=== PATIENT | female | born 1955 | race Caucasian/White ===

== ENCOUNTER → 2017-03-05 | Outpatient (CLI) | payer OTHER ==
[~2017-03-05] MED LIST: ABILIFY 5 MG TAB5 M1 PO; ALPRAZOLAM 0.50.5 M1 PO; CALCIUM 600 +1 EAC1 PO; CYMBALTA60 MG PO; ESTER C PO; ORPHENADRINE C100 M2 PO; PRAVASTATIN SOD80 MG PO; PRIMROSE OIL PO; SYNTHROID75 MCG PO; TOPAMAX 100 MG100 MG PO; VITAMIN E400 UNIT PO
== END ==
LOC: RAD 13:17
DX: Z12.31 Encounter for screening mammogram for malignant neoplasm of breast (principal)

== ENCOUNTER → 2017-03-12 | Outpatient (CLI) | payer OTHER | LOC: BC 01:35 | DX: N63 Unspecified lump in breast (principal); N60.01 Solitary cyst of right breast ==

== ENCOUNTER → 2018-02-26 | Outpatient (CLI) | payer OTHER | LOC: RAD 00:18 | DX: Z12.31 Encounter for screening mammogram for malignant neoplasm of breast (principal); Z85.3 Personal history of malignant neoplasm of breast ==

== ENCOUNTER → 2019-04-09 | Outpatient (CLI) | payer OTHER | LOC: RAD 01:29 | DX: Z12.31 Encounter for screening mammogram for malignant neoplasm of breast (principal) ==

== ENCOUNTER → 2020-04-22 | Outpatient (CLI) | payer OTHER | LOC: RAD 12:45 | PROVIDERS: ATTEND Family Medicine | DX: Z12.31 Encounter for screening mammogram for malignant neoplasm of breast (principal) ==

== ENCOUNTER → 2021-05-06 | Outpatient (CLI) | payer OTHER | LOC: RAD 14:26 | PROVIDERS: ATTEND Family Medicine | DX: Z12.31 Encounter for screening mammogram for malignant neoplasm of breast (principal); N64.89 Other specified disorders of breast; Z92.3 Personal history of irradiation; Z85.3 Personal history of malignant neoplasm of breast ==

== ENCOUNTER → 2021-05-10 | Outpatient (CLI) | payer OTHER | LOC: ULTRA 13:08 | PROVIDERS: ATTEND Radiology Diagnostic Radiology | DX: N60.01 Solitary cyst of right breast (principal) ==

== ENCOUNTER → 2021-05-19 | Outpatient (CLI) | payer OTHER ==
--- NOTE | 2021-05-23 17:07 | PATH ---
[facility] [address] [address] PATHOLOGY RPT PROCEDURE Name: LUZ CHEN Room #: REG [facility] M..#: [id number] Admission: 05/19/21 Date of : 53 Discharge: Report #: [id number] Path Case #: [id number] [facility] Accession Number: [id number] . 01 Material submitted: . PART A: breast - RIGHT BREAST CENTRAL BIOPSY. Modifiers: right PART B: breast - RIGHT AXILLARY NODE. Modifiers: right . 01 Clinical history: . BX MAMMOTOME/STEREO BX/R AX NODE/R BREAST CALCIFICATION . 02 Diagnosis: A. Breast, right breast central, stereotactic needle core biopsy: - INVASIVE POORLY-DIFFERENTIATED DUCTAL ADENOCARCINOMA, JAVI GRADE III/III, MEASURING 3 MM IN GREATEST DIMENSION IN SINGLE CORE CONTIGUOUS LENGTH. - BACKGROUND OF DUCTAL CARCINOMA IN SITU, HIGH NUCLEAR GRADE WITH PREDOMINANTLY SOLID FEATURES ON BREAST TISSUE. - Background breast tissue showing proliferative fibrocystic changes including focal radial scar, usual ductal hyperplasia, columnar cell hyperplasia in addition to fat necrosis. - Coarse calcifications identified in association with benign breast tissue, as well as fat necrosis. . B. Breast, right axillary lymph node, needle core biopsy: - POSITIVE FOR MALIGNANCY; METASTATIC ADENOCARCINOMA WITH APOCRINE FEATURES. - Background lymph node tissue present consistent with sampling of the lymph node. . (IUV:mml; 05/20/2021) [facility] 05/20/2021 1426 Local . 02 Comment: Specimen type: Stereotactic needle core biopsy Tumor site: Right breast central Tumor quantitation: 3 mm Histologic type: Invasive ductal carcinoma Histologic grade: III Tubules, nuclei and mitoses: 3, 3 and 2, respectively LVSI: Indeterminate Microcalcifications: Present associated with fat necrosis, as well as fibrocystic changes Markers: ER, PA, HER-2/alejandra and Ki-67 Block: A3 . Due to the presence of metastatic adenocarcinoma within the right axillary [facility] [address] [place] [address] PATHOLOGY RPT PROCEDURE Name: LUZ CHEN Room #: REG [facility].#: [id number] Admission: 05/19/21 Date of : 53 Discharge: Report #: [id number] Path Case #: [id number] lymph node, block B1 is sent for HER-2/alejandra analysis. . The breast prognostic marker report as well as the HER-2/alejandra report on block B3 will be reported in a separate addendum to follow. . [employer] Helper focus was co-reviewed by Dr. Carolyn Harley who concurs with the diagnosis rendered. The findings of this case are telephoned to Ms. Clemons at approximately 1:43 p.m. on 05/20/2021. . (IUV:mml; 05/20/2021) . 02 Addendum: . Special studies report received from [facility], [address] [place] [address], [address], [place], [address], on case [id number], labeled with their number [id number], dated 05/21/2021. . Flow Cytometry: Hematologic Neoplasia Assessment . Clinical History Atypical axillary node . Indication for Study Evaluation for hematolymphoid neoplasia . Specimen Lymph Node, Right Axillary . Viability 85% (7AAD exclusion) . Interpretation Lymph Node, Right Axillary: No significant lymphoid immunophenotypic abnormalities detected . Comments Non-hematolymphoid neoplasms, Hodgkin lymphoma, some large cell lymphomas and some T-cell lymphomas cannot be totally excluded based solely on flow cytometry analysis. Correlation with available clinical, laboratory, and morphologic data is recommended. . Populations Analyzed Lymphocytes: 82% B-cells: 38.2%, polytypic/polyclonal sIg light chain pattern T-cells: no significant abnormalities of the markers tested CD4:CD8: 3.2 NK cells: 1.6% Granulocytes: 1% Present [address] [address] PATHOLOGY RPT PROCEDURE Name: LUZ CHEN Room #: REG IVON Platt#: [id number] Admission: 05/19/21 Date of : 53 Discharge: Report #: [id number] Path Case #: [id number] CD45 Negative 17% No significant reactivity with the markers tested Events/Debris: (may represent non-hematolymphoid cells, degenerated cells, debris, unlysed red blood cells, etc.) . Morphologic Evaluation A slide was reviewed for supplier quality engineer purposes only. . Specimen Description Cell Yield: 0.92 X 10 and 6 . Reagent(s) Used CD2, CD3, CD4, CD5, CD7, CD8, CD10, CD11b, CD19, CD20, CD23, CD30, CD38, CD43, CD45, CD56, CD57, FMC-7, HLA-DR, kappa, lambda . at [facility]. Cammy Boyer MD Pathologist . . Intended Use Flow cytometry is optimally used to immunophenotypically characterize abnormal populations when they are detected. Negative flow cytometry results do not exclude lymphoma or neoplasia. Possible false negative flow cytometry results may occur in, but are not limited to, the following: neoplastic cells in Hodgkin lymphoma are not typically adequately represented by routine clinical flow cytometry; neoplastic cells may be lost or inadequately represented due to degeneration, sample processing, sampling artifact, or patchy involvement; plasma cells are typically underrepresented by flow cytometry; immature cells/blasts may be underrepresented due to hemodilution; myeloproliferative disorders and low grade myelodysplasia may not have immunophenotypic abnormalities or increased blasts. Correlation with all available clinical, laboratory, and morphologic data is always necessary to assess for the possibility of false negative flow cytometry results and to establish a diagnosis. Each marker in this analysis was used to assess for potential antigenic abnormalities or to evaluate detected abnormalities. . Any image or images that accompany this report are client account representative images only and should not be used to render a diagnosis. . Disclaimer(s) This test was developed and its performance characteristics determined by [facility]. It has not been cleared or approved by the Food and Drug Administration. . [facility] is a business unit of [employer] [address] [address] PATHOLOGY RPT PROCEDURE Name: LUZ CHEN Room #: [facility]#: [id number] Admission: 05/19/21 Date of : 53 Discharge: Report #: [id number] Path Case #: [id number] [employer], a wholly-owned subsidiary of [employer]. . This test was performed at [facility]. at [address], [place], [address] - Mandrel Cleaner: Armand Feliz MD. . For inquiries, the physician may contact Lab: [phone] . A complete copy of the report is on file. . Professional services performed by [facility] at [address], [place] [address]. Technical services performed by [facility] at [address], [place] [address]. . (IUV:amj 05/23/2021) . [facility]/05/23/2021 Addendum Electronically Signed by Wen Onofre MD, Pathologist . 02 Electronically signed: . Wen Onofre MD, Pathologist NPI- [id number] . 01 Gross description: . A. Received in formalin labeled "Luz Chen and breast biopsy". Additional information from the requisition states the site as "right central breast stereotactic". Received are multiple white-yellow fibroadipose breast tissue cores ranging from 1.0-2.0 cm in length and 0.2-0.3 cm in diameter. The specimen is entirely submitted in cassettes A1-A3. The specimen was collected on 05/19/2021 at 12:17 PM and placed into formalin at 12:23 PM. The specimen will be removed from formalin on 05/19/2021 and 11:40 PM. The specimen will be in formalin more than 6 hours and less than 72 hours. . B. Received in formalin labeled "Luz Chen and right axillary lymph node". Received are 2 lymph node core biopsies ranging from 1.0-1.2 cm in length and 0.1 cm in diameter. The specimen is entirely submitted in cassette B1. The specimen is entirely submitted in cassettes B1-B3. The specimen was collected on 05/19/2021 at 1315 p.m. and placed into formalin at 1315 p.m. The specimen will be removed from formalin on 05/19/2021 and 11:40 PM. The specimen will be in formalin more than 6 hours and less than 72 [address].([facility]; 05/19/2021) J/[facility] 05/20/2021 1406 Local . 02 Pathologist provided ICD-10: C50.111, D05.11, N60.11, N62, C77.[address] [address] PATHOLOGY RPT PROCEDURE Name: LUZ CHEN Room #: REG CLI [facility]chan[facility].#: [id number] Admission: 05/19/21 Date of : 53 Discharge: Report #: [id number] Path Case #: [id number] . 02 CPT . [id number], [id number] Specimen Comment: A courtesy copy of this report has been sent to [phone], [phone] Specimen Comment: [id number] Specimen Comment: Report sent to / DR CURTIS Performed at: [address] [facility], [place], [place] [id number] MD Duncan Antonio MD Phone: [phone] Performed at: [address] [facility] [id number] MD Wen Onofre MD Phone: [phone]
== END | disposition home or self-care (01) ==
LOC: ULTRA 11:04 → RAD 11:04 → ULTRA 11:43
PROVIDERS: ATTEND Family Medicine
DX: C50.111 Malignant neoplasm of central portion of right female breast (principal); C77.3 Secondary and unspecified malignant neoplasm of axilla and upper limb lymph nodes; R92.1 Mammographic calcification found on diagnostic imaging of breast; R59.0 Localized enlarged lymph nodes; N62 Hypertrophy of breast; N60.11 Diffuse cystic mastopathy of right breast; N64.1 Fat necrosis of breast; Z98.890 Other specified postprocedural states; Z88.8 Allergy status to other drugs, medicaments and biological substances; Z79.899 Other long term (current) drug therapy

== ENCOUNTER → 2021-06-08 | Outpatient (CLI) | payer OTHER ==
[2021-06-08 10:06] LABS: CREATININE 1.2 mg/dL (0.6-1.0)
== END ==
LOC: MRI 08:36
PROVIDERS: ATTEND Surgery
DX: C50.911 Malignant neoplasm of unspecified site of right female breast (principal); R59.0 Localized enlarged lymph nodes